=== PATIENT | male | born 1950 | race Caucasian/White ===

== ENCOUNTER 2016-12-05 13:17 | Emergency (ER) | payer OTHER ==
--- NOTE | ~2016-12-05 | EKG ---
PATIENT: DILIP DRUMMOND UNIT #: [id number] Ventricular Rate: 55 BPM Atrial Rate: 55 BPM P-R Interval: 170 ms QRS Duration: 94 ms Q-T Interval: 416 ms QTC Calculation(Bezet): 397 ms P Kent: 6 degrees Calculated R Kent: 11 degrees Calculated T Kent: 22 degrees Diagnosis Line: Sinus bradycardia Diagnosis Line: Anteroseptal infarct , age undetermined Diagnosis Line: Abnormal ECG Diagnosis Line: No previous ECGs available Diagnosis Line: Confirmed by ALFRED BOWIE MD ([id number]) on Diagnosis Line: 12/05/2016 3:10:00 PM INTERPRETING MD: LINDY
== END 2016-12-05 13:45 | disposition home or self-care (01) ==
LOC: CED 13:17
DX: Z53.21 Procedure and treatment not carried out due to patient leaving prior to being seen by health care provider (principal)
CPT/HCPCS: 93005

== ENCOUNTER → 2017-01-19 | Outpatient (CLI) | payer MEDICARE ==
--- NOTE | ~2017-01-19 | CR265 ---
[facility] A Service of [facility] / [facility] RADIOLOGY TEXT RESULTS PATIENT: DILIP DRUMMOND LOCATION: [facility] : 50 UNIT #: [id number] AGE: [address]: Keith Marcano MD SEX: M ORDER DR: [id number] [facility] [address] [facility] [place], [place] [address] [id number] O MR#: [id number] Acc #: [id number] NAME: DILIP DRUMMOND : 1950 SEX: M STUDY DATE/TIME: 01/19/2017 12:17 UNIT: [facility] ROOM: STUDY DESCRIPTION: CR Upper GI Series Wo KUB Attending Physician: Keith Marcano M.D. Referring Physician: Keith Marcano M.D. Ordering Physician: Keith Marcano M.D. Primary Care Physician: Elisabeth MontgomeryPUmmRKaitlynn MEDICAL IMAGING REPORT This report is preliminary unless electronic signature is present EXAM Esophagram HISTORY Chest pain. Hiatal hernia. COMPARISON STUDIES CT images from 01/15/2012. FINDINGS As on the prior CT, there is a large hiatal hernia. There is no esophageal mass or fold thickening or stricture. Contrast passes out of the intrathoracic stomach, was minimal during the entire observed exam. 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 The proximal stomach is on the left. The distal stomach is on the right. The stomach does not appear obstructive. There is no esophageal stricture or mass or fold thickening. During the period of observation, contrast never left the stomach and so the proximal small bowel cannot be assessed. Dictated by... Bravo Molina M.D. THIS IS AN ELECTRONICALLY VERIFIED REPORT Bravo Molina M.D. at 01/20/2017 2:53 PM TEV/pcl [facility] A Service [facility] RADIOLOGY TEXT RESULTS PATIENT: DILIP DRUMMOND LOCATION: [facility] #: [id number] : 50 UNIT #: [id number] AGE: [address]: Keith Marcano MD SEX: M ORDER DR: TD: 01/19/2017 23:22 JOB #: [id number] MEDICAL IMAGING REPORT Page 1 of 1 COPY
== END | disposition home or self-care (01) ==
LOC: CRAD 01-18 10:30
DX: K44.9 Diaphragmatic hernia without obstruction or gangrene (principal); K20.9 Esophagitis, unspecified
CPT/HCPCS: 74240